=== PATIENT | male | born 1985 | race Caucasian/White ===

== ENCOUNTER 2019-08-01 19:01 | Emergency (ER) | payer MEDICAID ==
[~2019-08-01] VITALS: Ht 172.7 cm; Wt 54.2 kg
[2019-08-01 19:06] VITALS: BP 127/90
[2019-08-01] MEDS ORDERED: PENI500T2 PO (19:20)
[2019-08-01] MEDS ORDERED: ACET-3067 PO (19:20)
== END 2019-08-01 19:37 | disposition home or self-care (01) ==
LOC: ER 19:02
DX: K02.9 Dental caries, unspecified (principal); K01.1 Impacted teeth; F17.200 Nicotine dependence, unspecified, uncomplicated; Z79.2 Long term (current) use of antibiotics; Z79.899 Other long term (current) drug therapy
CPT/HCPCS: 99283

== ENCOUNTER 2019-09-16 01:26 | Emergency (ER) | payer MEDICAID ==
[~2019-09-16] VITALS: Ht 172.7 cm; Wt 70.5 kg
[2019-09-16 01:31] VITALS: BP 128/77
[2019-09-16] MEDS ORDERED: AMOX500C2 PO (02:02)
[2019-09-16] MEDS ORDERED: HYDR-3965 PO (02:02)
== END 2019-09-16 02:15 | disposition home or self-care (01) ==
LOC: ER 01:27
DX: K02.9 Dental caries, unspecified (principal)
CPT/HCPCS: 99283

== ENCOUNTER 2019-12-01 03:56 | Emergency (ER) | payer MEDICAID ==
[~2019-12-01] VITALS: Ht 172.7 cm; Wt 68.2 kg
[2019-12-01 04:01] VITALS: BP 130/70
[2019-12-01] MEDS ORDERED: HYDR-3965 PO (05:23)
[2019-12-01] MEDS ORDERED: AMOX500C2 PO (05:23)
== END 2019-12-01 05:33 | disposition home or self-care (01) ==
LOC: ER 03:57
DX: K08.89 Other specified disorders of teeth and supporting structures (principal); R68.84 Jaw pain; Z79.2 Long term (current) use of antibiotics; Z79.899 Other long term (current) drug therapy
CPT/HCPCS: 99283

== ENCOUNTER 2020-01-17 11:24 | Emergency (ER) | payer MEDICAID ==
[~2020-01-17] VITALS: Ht 172.7 cm; Wt 65.0 kg
[2020-01-17 12:12] VITALS: BP 130/66
[2020-01-17] MEDS ORDERED: AZIT250T PO (14:28)
== END 2020-01-17 14:45 | disposition home or self-care (01) ==
LOC: ER 11:24
DX: J06.9 Acute upper respiratory infection, unspecified (principal); F17.200 Nicotine dependence, unspecified, uncomplicated; F12.90 Cannabis use, unspecified, uncomplicated; Z79.899 Other long term (current) drug therapy
CPT/HCPCS: 87502; 87503; 99283